=== PATIENT | female | born 1980 | race Two or more races ===

== ENCOUNTER 2017-03-07 23:16 | Emergency (ER) | payer OTHER ==
[2017-03-08 01:22] LABS: ABSOLUTE NEUTROPHIL COUNT 10.3 K/mm3 (1.8-7.7); BASO % 0.3 % (0.2-1.0); EOS # 0.1 (0.0-0.5); EOS % 0.4 % (0.9-2.9); HEMATOCRIT 35.8 % (37.0-47.0); HEMOGLOBIN 11.9 gm/l (12.0-16.0); IMM NEUT% 0.3 % (0-1); LYMPH # 1.2 (1.0-4.8); LYMPH % 9.7 % (15-45); MEAN CELL VOLUME 93.7 fl (81.0-99.0); MEAN CORPUSCULAR HEMOGLOBIN 31.2 pg (27.0-31.0); MEAN CORPUSCULAR HGB CONC 33.2 g/dl (33.0-37.0); MEAN PLATELET VOLUME 8.8 fl (7.4-10.4); MONO # 0.5 (0.0-0.8); MONO % 3.9 % (4-12); NEUT % 85.4 % (43-75); PLATELET COUNT 286 K/mm3 (130-400); RED CELL DISTRIBUTION WIDTH 12.3 % (11.5-14.5)
[2017-03-08 01:29] LABS: ALB/GLOB RATIO 1.6 (>1.0); ALBUMIN 4.1 gm/dL (3.5-5.7); CALCIUM 9.1 mg/dL (8.6-10.3)
[2017-03-08] MEDS ORDERED: ONDANSETRON 4 MG/2ML 2 ML VIAL ONE (01:42)
[2017-03-08] MEDS ORDERED: MAALOX/LIDO2%VISC/SIMETHICONE 40 ML BOT ONE (01:42)
[2017-03-08 02:41] LABS: URINE BILIRUBIN NEGATIVE (NEGATIVE); URINE BLOOD 4+ (NEGATIVE); URINE GLUCOSE (UA) NEGATIVE (NEGATIVE); URINE LEUKOCYTE ESTERASE TRACE (NEGATIVE); URINE NITRITE NEGATIVE (NEGATIVE); URINE PROTEIN TRACE (NEGATIVE)
[2017-03-08 02:42] LABS: URINE APPEARANCE HAZY; URINE COLOR YELLOW; URINE UROBILINOGEN 4 mg/dL (0-1 mg/dl)
[2017-03-08 02:43] LABS: HCG,QUALITATIVE URINE NEGATIVE
[2017-03-08 02:48] LABS: URINE BACTERIA FEW; URINE EPITHELIAL CELLS FEW /hpf; URINE MUCUS 1+; URINE RBC 20-30 /hpf
--- NOTE | 2017-03-08 08:20 | US ---
ABDOMINAL-LIMITED: 03/08/2017 1:43 AM CLINICAL HISTORY: Right upper quadrant pain. STUDY: Limited right upper quadrant ultrasound COMPARISON: none FINDINGS: Gallbladder: Wall thickness: Normal Cholelithiasis: Debris is present without evidence of stones. Pericholecystic Fluid: none Sonographic Dobson's Sign: negative Bile ducts: Common bile duct measures 8 mm, dilated for patient of this age. Limited visualized Liver and RUQ structures: normal IMPRESSION: Dilated common bile duct without evidence of acute cholecystitis. Debris is present without evidence of cholelithiasis. Follow-up with ERCP or MRCP for common duct obstruction would be recommended. Preliminary report was provided by [facility] at approximately 0253 hours on 03/08/2017.
== END 2017-03-08 04:07 | disposition home or self-care (01) ==
LOC: ED 23:16
DX: R10.13 Epigastric pain (principal); R11.10 Vomiting, unspecified
CPT/HCPCS: 83690; 81025; 85025; 87086; 80053; 84484; 81001; 76705; 99283 ×2; 96374; A9270; J2405